=== PATIENT | female | born 1995 | race Caucasian/White ===

== ENCOUNTER 2020-08-02 17:01 | Emergency (ER) | payer OTHER, SELFPAY ==
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
[2020-08-02 17:17] VITALS: BP 135/72; PULSE 81; RESP 16; TEMP 37.3; O2SAT 99; BMI 29.2
== END 2020-08-02 18:10 | disposition home or self-care (01) ==
LOC: HO.ED 17:36
PROVIDERS: Emergency Provider Emergency Medicine
DX: S19.80XA Other specified injuries of unspecified part of neck, initial encounter (principal); M54.2 Cervicalgia; W22.11XA Striking against or struck by driver side automobile airbag, initial encounter; Y93.9 Activity, unspecified; Y92.410 Unspecified street and highway as the place of occurrence of the external cause; Y99.9 Unspecified external cause status
CPT/HCPCS: 99283; 99284